=== PATIENT | male | born 1995 | race Caucasian/White ===

== ENCOUNTER 2022-05-17 17:44 | Emergency (ER) | payer MEDICAID, OTHER ==
[~2022-05-17] VITALS: Ht 152.4 cm; Wt 128.4 kg
[2022-05-17 18:14] VITALS: BP 110/68
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
[2022-05-17] MEDS ORDERED: LIDOCAINE/EPI MPF 2%1:200000 10 ML VIAL INJ ONE (18:40)
[2022-05-17] MEDS ORDERED: LIDOCAINE/EPI 2% 1:100000 20 ML VIAL INJ ONE (18:50)
--- NOTE | 2022-05-17 19:14 | NUR ---
GAVE REPORT TO JAMIE CHILDERS.
--- NOTE | 2022-05-17 19:15 | NUR ---
ER Dr. Felipe by bedside
[2022-05-17] MEDS ORDERED: CLIN300C2 PO (19:32)
[2022-05-17] MEDS ORDERED: IBUP-2213 PO (19:32)
[2022-05-17 19:52] VITALS: BP 110/68
--- NOTE | 2022-05-17 19:53 | NUR ---
Patient discharged with v/s stable. Written and verbal after care instructions given and explained. New prescription for clindamycin and ibuprofen. Patient verbalized understanding. Ambulatory with steady gait. All questions addressed prior to discharge. Advised to follow up with PMD.
== END 2022-05-17 19:52 | disposition home or self-care (01) ==
LOC: MED 17:44
DX: H00.033 Abscess of eyelid right eye, unspecified eyelid (principal); Z79.2 Long term (current) use of antibiotics; Z79.1 Long term (current) use of non-steroidal anti-inflammatories (NSAID)
CPT/HCPCS: 10060; 99283; J2001; 67700; 99284